=== PATIENT | female | born 1970 | race Caucasian/White ===

== ENCOUNTER → 2017-10-17 | Outpatient (CLI) | payer BC ==
[2004-11-28 06:54] VITALS: PULSE 64
[~2017-10-17] MED LIST: FLOMAX 0.40.4 MG/CAP PO; NORCO 325 MG-51 TAB PO; PHENERGAN 25 TA25 MG PO
== END ==
LOC: MC.RAD 09:29
DX: Z12.31 Encounter for screening mammogram for malignant neoplasm of breast (principal)

== ENCOUNTER → 2018-12-01 | Outpatient (CLI) | payer BC ==
[2004-11-28 06:54] VITALS: PULSE 64
== END ==
LOC: MC.RAD 09:47
DX: Z12.31 Encounter for screening mammogram for malignant neoplasm of breast (principal)

== ENCOUNTER → 2020-08-05 | Outpatient (CLI) | payer BC ==
[2004-11-28 06:54] VITALS: PULSE 64
== END ==
LOC: MC.RAD 10:26
DX: Z12.31 Encounter for screening mammogram for malignant neoplasm of breast (principal)

== ENCOUNTER → 2021-09-11 | Outpatient (CLI) | payer BC ==
[2004-11-28 06:54] VITALS: PULSE 64
== END ==
LOC: MC.RAD 08:36
DX: Z12.31 Encounter for screening mammogram for malignant neoplasm of breast (principal)

== ENCOUNTER → 2022-12-14 | Outpatient (CLI) | payer BC ==
[2004-11-28 06:54] VITALS: PULSE 64
== END ==
LOC: MC.RAD 08:30
DX: Z12.31 Encounter for screening mammogram for malignant neoplasm of breast (principal)

== ENCOUNTER 2023-07-09 13:42 | Emergency (ER) | payer BC ==
[~2023-07-09] VITALS: Ht 167.6 cm; Wt 81.8 kg
[2023-07-09 13:58] VITALS: TEMP 97.9
[2023-07-09 14:33] LABS: HEMATOCRIT 43.2 % (37.0-47.0); MEAN CELL VOLUME 88 fl (80.0-100.0); MEAN CORPUSCULAR HEMOGLOBIN 28 pg (27-31); MEAN CORPUSCULAR HGB CONC 32 g/dl (33.0-37.0); MEAN PLATELET VOLUME 9.1 fl (7.4-10.4); PLATELET COUNT 319 K/mm3 (130-400); RED BLOOD COUNT 4.93 M/mm3 (4.10-5.30)
[2023-07-09 14:48] LABS: COLLECTION METHOD CLEAN CATCH
[2023-07-09 15:03] LABS: BAND 13 % (0-10); LYMPHOCYTE 2 % (20.0-51.0); NEUTROPHILS 84 % (42.0-75.2); PLATELET ESTIMATE NORMAL (NORMAL)
[2023-07-09 15:09] LABS: ALBUMIN 4.2 gm/dL (3.5-5.0); BILIRUBIN,TOTAL 0.6 mg/dL (0.2-1.2); C-REACTIVE PROTEIN 2.33 mg/dL (0.00-0.50); CALCIUM 9.6 mg/dL (8.4-10.2); CREATININE, serum 0.81 mg/dL (0.57-1.11); TOTAL PROTEIN 7.7 gm/dL (6.2-8.1)
[2023-07-09 15:12] LABS: PH 7.5 (5.0-8.5); URINE APPEARANCE Clear (CLEAR/HAZY); URINE COLOR Yellow (YELLOW); URINE GLUCOSE Negative (NEGATIVE); URINE KETONE 1+ (NEGATIVE); URINE PROTEIN(semi-quant) 1+ (NEGATIVE)
[2023-07-09 15:13] LABS: SQUAMOUS EPITHELIAL 0-2 /hpf (0-10); URINE BLOOD Negative (NEGATIVE); URINE NITRATE Negative (NEGATIVE); URINE RBC 0-2 /hpf (0-2); URINE UROBILINOGEN 0.2 E.U/dL (0.2-1.0)
[2023-07-09 15:14] LABS: MUCOUS Present (NOT PRESENT); URINE BACTERIA Moderate /hpf (NONE SEEN)
[2023-07-09 15:31] VITALS: BP 125/71
[2023-07-09] MEDS ORDERED: NORCO 325 MG-51 TAB PO (16:10)
[2023-07-09] MEDS ORDERED: VALIUM 2MG T2 MG/TAB PO (16:10)
[2023-07-09 16:40] VITALS: PULSE 76
== END 2023-07-09 16:40 | disposition home or self-care (01) ==
LOC: COL.ER 13:42
PROVIDERS: Family Medicine
DX: M54.50 Low back pain, unspecified (principal)
CPT/HCPCS: J2270; J2405; J7120; Q9967